=== PATIENT | female | born 1975 | race Caucasian/White ===

== ENCOUNTER 2022-05-05 15:54 | Outpatient (CLI) | payer OTHER, SELFPAY ==
--- NOTE | ~2022-05-05 | XR_ITS ---
XR knee RT min 4V DATE: 05/05/2022 16:20 INDICATION: Right knee pain TECHNIQUE: [place] and standing AP, PA and lateral views COMPARISON: None FINDINGS: No fracture or dislocation or joint effusion, periosteal reaction or bone destruction or si gnificant joint space narrowing. No radiopaque intra-articular loose body or chondrocalcinosis. IMPRESSION: No significant abnormality Reviewed, dictated and finalized at location B. IMPRESSION: No significant abnormality
== END 2022-05-05 15:55 ==
LOC: MICIMG 15:57
PROVIDERS: PCP Family Medicine; Visit Provider Family Medicine
DX: M25.861 Other specified joint disorders, right knee (principal)
CPT/HCPCS: 73564

== ENCOUNTER 2022-05-09 09:36 | Outpatient (CLI) | payer OTHER, SELFPAY ==
[2022-05-09 10:11] LABS: Basophils Percent Auto 0.5 % (0.2-1.2); Eosinophils Absolute Auto 0.1 K/mm3 (0-0.3); Eosinophils Percent Auto 2.6 % (0-4.4); Hematocrit 38.6 % (37.0-47.0); Hemoglobin 13.3 g/dL (12.0-15.0); Immature Granulocyte Absolute 0.01 K/mm3 (0.00-0.031); Immature Granulocyte Percent A 0.3 % (0-0.5); Lymphocytes Percent Auto 36.1 % (18.3-44.2); Mean Corpuscular HGB Conc 34.5 g/dl (32-36); Mean Corpuscular Hemoglobin 30.7 pg (26-34); Mean Corpuscular Volume 89.1 fl (80-100); Mean Platelet Volume 9.8 fl (7.4-10.4); Monocytes Absolute Auto 0.4 K/mm3 (0.1-0.6); Monocytes Percent Auto 9.5 % (2.6-8.5); Platelet Count Result 270 k/mm3 (150-375); Red Blood Count 4.33 M/mm3 (4.2-5.4); White Blood Count 3.9 K/mm3 (4.5-10.0)
[2022-05-09 10:24] LABS: Alanine Aminotransferase 14 U/L (6-35); Albumin Level 4.6 g/dL (3.5-5.1); Alkaline Phosphatase 36 U/L (38-126); Anion Gap 10 mmol/L (8-16); Aspartate Amino Transferase 18 U/L (14-36); Bilirubin,Total 0.6 mg/dL (0.2-1.3); Blood Urea Nitrogen 10 mg/dL (7-17); Calcium 9.1 mg/dL (8.4-10.2); Carbon Dioxide 26 mmol/L (22-30); Chloride 103 mmol/L (98-107); Cholesterol 280 mg/dL (0-200); Estimated Glomerular Filt Rate > 60; Glucose 93 mg/dL (65-110); HDL Direct 67 mg/dL; Potassium 4.2 mmol/L (3.4-5.0); Sodium 139 mmol/L (137-145); Triglycerides 83 mg/dL (<150)
[2022-05-09 10:34] LABS: LDL Cholesterol Direct 124 mg/dL
[2022-05-09 10:40] LABS: Free T4 Free Thyroxine 1.08 ng/mL (0.78-2.19); Vitamin D 25 Hydroxy 43.7 ng/mL
== END 2022-05-09 09:37 | disposition home or self-care (01) ==
LOC: ANHLAB 09:38
PROVIDERS: PCP Family Medicine; Visit Provider Family Medicine
DX: R53.83 Other fatigue (principal); R73.9 Hyperglycemia, unspecified; E55.9 Vitamin D deficiency, unspecified; Z13.220 Encounter for screening for lipoid disorders
CPT/HCPCS: 36415; 80053; 80061; 82306; 83036; 84439; 84443; 85025

== ENCOUNTER 2022-05-12 10:14 | Outpatient (CLI) | payer OTHER, SELFPAY ==
[2022-05-15 02:39] LABS: Thyroid Peroxidase Antibodies 124 IU/mL (<9)
== END 2022-05-12 10:15 | disposition home or self-care (01) ==
LOC: ANHGOSHLAB 10:16
PROVIDERS: PCP Family Medicine; Visit Provider Family Medicine
DX: R79.89 Other specified abnormal findings of blood chemistry (principal)
CPT/HCPCS: 36415; 86376

== ENCOUNTER 2022-05-23 13:41 | Outpatient (CLI) | payer OTHER, SELFPAY ==
--- NOTE | ~2022-05-23 | US_ITS ---
EXAMINATION: US soft tissue LE RT DATE: 05/23/2022 14:22 INDICATION: Mass medial to right knee. TECHNIQUE: Multiple grayscale and Doppler ultrasound images of the right lower limb were obtained. COMPARISON: Right knee radiographs 05/05/2022 FINDINGS: There is a 3.5 x 1.4 x 2.3 cm hypoechoic and anechoic mass medial to the right knee. IMPRESSION: 1. 3.5 x 1.4 x 2.3 cm mass medial to the right knee. The differential diagnosis includes neoplasm, ga nglion cyst, and hematoma. Knee MRI without and with contrast is recommended. Reviewed, dictated and finalized at location A. IMPRESSION: 1. 3.5 x 1.4 x 2.3 cm mass medial to the right knee. The differential diagnosis includes neoplasm, ganglion cyst, and hematoma. Knee MRI without and with cont rast is recommended.
== END 2022-05-23 13:42 | disposition home or self-care (01) ==
LOC: ANHIMG 13:43
PROVIDERS: PCP Family Medicine; Visit Provider Family Medicine
DX: M25.861 Other specified joint disorders, right knee (principal)
CPT/HCPCS: 76882

== ENCOUNTER 2022-06-27 14:18 | Outpatient (CLI) | payer OTHER, SELFPAY ==
--- NOTE | ~2022-06-27 | MR_ITS ---
EXAMINATION: MR knee RT wo/w con DATE: 06/27/2022 15:11 INDICATION: Painful lump at the medial right knee TECHNIQUE: Magnetic resonance imaging (MRI) of the without and with 13 mL Multihance knee was perform ed without intravenous contrast. Sequences included coronal PD-weighted FSE, coronal PD-weighted FS FSE, sagittal T2-weighted FSE, sagittal PD-weighted FS FSE, axial PD weighted fat saturated FSE, axia l T1-weighted FS FSE and postcontrast axial, sagittal and coronal T1-weighted FS FSE. COMPARISON: Right knee ultrasound dated 05/23/2022 FINDINGS: Medial compartment: Longitudinal horizontal tear at the posterior horn of the medial meniscus. There is associated large para labral cyst with thin peripheral enhancement arising at the medial side of the tear. The ganglio n cyst extends anteriorly along the medial side of the knee superficial to the medial collateral liga ment. The cyst measures 3.9 cm AP, 3.4 cm craniocaudally and 1.4 cm in maximal thickness. This appear s to correspond to the cystic lesion of concern on prior ultrasound. Articular cartilage is normal. Lateral compartment: Lateral meniscus is normal. Articular cartilage is normal. Patellofemoral compartment: Articular cartilage is normal. Ligaments and tendons: Anterior and posterior cruciate ligaments are normal. The medial collateral ligament and fibular yuki ateral ligament complex are normal. The extensor mechanism is normal. The visualized medial and later al hamstring tendons as well as the iliotibial band are normal. Fluid: Physiologic amount of fluid in the joint space. No loose osteochondral bodies identified. Osseous/other: Normal marrow signal. No fracture or pathologic marrow replacing process. No other masses, fluid yuki ections or abnormally enhancing lesions identified. IMPRESSION: 1. Longitudinal horizontal tear of the posterior horn of the medial meniscus with associated 3.9 x 3. 4 x 1.4 cm paravertebral cyst extending anteriorly along the medial side of the knee and accounting f or the cystic lesion of concern on prior ultrasound. Reviewed, dictated and finalized at location A. IMPRESSION: 1. Longitudinal horizontal tear of the posterior horn of the medial meniscus wi th associated 3.9 x 3.4 x 1.4 cm paravertebral cyst extending anteriorly along the medial side of the knee and accounting for the cystic lesion of concern on prior ultrasound.
== END 2022-06-27 14:19 ==
PROVIDERS: PCP Family Medicine; Visit Provider Family Medicine
DX: S83.241A Other tear of medial meniscus, current injury, right knee, initial encounter (principal); X58.XXXA Exposure to other specified factors, initial encounter
CPT/HCPCS: 73723; A9577

== ENCOUNTER 2022-07-21 01:02 | Day surgery (SDC) | payer OTHER, SELFPAY ==
[2022-07-14 08:28] VITALS: BMI 24.1
--- NOTE | 2022-07-14 08:41 | PC.NURSE ---
Report to the Outpatient Waiting Room, entrance under the green pavilion located off [facility], at time 0830 on date 07/21/22. OR Time: 1030. Time changes happen often and if your time is changed the preop area will call you the afternoon before. - You and your visitor will be asked to self-screen and do not enter if you have any COVID symptoms. - Only one visitor and NO children visitors are allowed at this time. - The patient visitor is requested to leave or wait in car when not with patient due to restrictions. - A mask is required within the hospital. Patients may have clear liquids (water, carbonated beverages, clear teas, apple juice) until 3 hours prior to surgery with a maximum of 20 ounces. - No food from midnight until time of surgery Take the following medications with a SIP of water the morning of surgery: LEVOTHYROXINE Medications to discontinue per physician: N/A Date to take last dose: N/A Please no make-up, nail romanian, hairspray, perfume, deodorant, or body powder the day of surgery. No jewelry (including any body piercings) or valuables the day of surgery, leave them at home. Please take a shower or bath the night before, or the morning of, surgery with an antibacterial soap. Wear comfortable, loose fitting clothing. - Jewelry must be removed prior to entering the operating room. Rings and piercings that are not removed may be cut off. - The hospital will not accept responsibility for valuables. - Please leave all valuables, including medications, at home the day of surgery. If you are going home after surgery, a licensed milk wagon driver must drive you home. - NO public transportation without another adult. - We recommend that an adult stay with you for 24 hours following discharge. - We also recommend that you do not drive, make important decision, drink alcoholic beverages, or take any drugs that were not prescribed by your health care provider for at least 24 hours after your discharge time. Follow any additional instructions given to you from your surgeon. If you or anyone in your household have experienced Covid symptoms in the past week, please notify your surgeon or the nurse liaison at the phone number below for possible testing. Telephone instructions given to PT - RAMAN SAHU and asked if any additional questions and then verbalized understanding. Patient advised to call surgeon office or pre surgery nurse liaison [phone] if any additional questions.
[2022-07-21] VITALS (9 sets, daily range): BP systolic 109–162; BP diastolic 52–90; PULSE 73–92; RESP 14–18; TEMP 37.1; O2SAT 98–100
--- NOTE | 2022-07-21 07:09 | WPDHPUPDATE1 ---
History and Physical Update Update Date/Time: 07/21/22 07:09 History and Physical has been reviewed, including an updated exam of the patient. There are NO changes in the patient's condition. Risks, benefits, and alternatives have been discussed and questions answered. Patient agrees to proceed with procedure.
[2022-07-21] MEDS: ACETAMINOPHEN 500 MG TABLET 1000 MG PO (08:41)
--- NOTE | 2022-07-21 09:20 | P.PNAN_ITS ---
Anes - Initial Pre Proc Eval Procedure: Operation Date: 07/21/22 10:30 Proposed Procedures p Right Knee Arthroscopy with Debridement Meniscus Synovectomy, Chrondroplasty, Proceed as Indicated - Kana Sue MD Date/Time: 07/21/22 09:20 Surgeon: Kana Sue MD Pre Op Diagnosis: Rt Knee Pain, Meniscis Tear, Chrondromalacia Patient Data Age: 47 Gender: F Height: 1.65 m Weight: 65.4 kg Last Vital Signs Temp 37.1 C 07/21/22 09:15 Pulse 87 07/21/22 09:15 Resp 16 07/21/22 09:15 BP 126/90 07/21/22 09:15 Pulse Ox 100 07/21/22 09:15 O2 Del Method Room Air 07/21/22 09:15 Allergies Allergy/AdvReac Type Severity Reaction Status Date / Time No Known Allergies Allergy Verified 07/21/22 08:36 Home Medications Medication Instructions Recorded Confirmed Type levothyroxine 25 mcg tablet 25 mcg PO DAILY #90 tabs 05/12/22 07/21/22 Rx hydrocodone 5 mg-acetaminophen 325 1 tablet PO Q6H PRN pain #30 tabs 07/21/22 Rx mg tablet ibuprofen 800 mg tablet 800 mg PO TID PRN pain #30 tabs 07/21/22 Rx ondansetron 8 mg disintegrating 8 mg PO Q8H PRN nausea and 07/21/22 Rx tablet vomiting #10 tabs sennosides 8.6 mg-docusate sodium 1 tab-cap PO BID PRN constipation 07/21/22 Rx 50 mg tablet (Senna with Docusate #20 tabs Sodium) Patient hx anesthesia problems: none Family hx anesthesia problems: none Results Review: All pre-operative results and documents have been reviewed as part of the pre- operative evaluation. [facility] Past Medical History Medical History Acute medial meniscus tear of right knee Anxiety Cyst of medial meniscus of right knee Hypothyroidism Family History Family History Father Diabetes mellitus Patient's father is in good health History of quadruple bypass Heart disease Mother Family history of malignant neoplasm of cervix, Onset Age: 61 Family history of malignant neoplasm of uterus, Onset Age: 61 Social History Social History Smoking status: Never smoker Second hand tobacco smoke exposure: No Alcohol intake: never Substance use: never Substance use type: does not use Living arrangements: with family Gender identity (if verbalized by the patient): Female Spiritual care concerns: No Anes - Eval Final PreProcedure Day of Procedure 07/21/22 09:20 Patient weight: normal Heart: regular rate and rhythm Lungs: clear to auscultation Airway: Mallampati scale class II Neurological: alert and oriented Last oral intake: >/= 8 hours ASA classification: II Emergent: no Anesthetic plan: proceed Anesthesia type and monitoring: general LMA and standard monitoring Results Review: All pre-operative results and documents have been reviewed as part of the pre- operative evaluation. Informed Consent: The patient's anesthetic plan and its attendant risks and benefits were discussed with the patient/family/POA. Questions were solicited and answers provided to the satisfaction of the patient/family/POA.
[2022-07-21] MEDS: KETOROLAC 15 MG/ML VIAL (*BKC) IV PUSH (09:24)
[2022-07-21] MEDS: LACTATED RINGERS 1,000 ML 30 ML IV CONT (09:24)
[2022-07-21] MEDS: MIDAZOLAM HCL (*CRX) 2 MG/2 ML VIAL IV PUSH (09:34)
[2022-07-21] MEDS: ceFAZolin 2 GM/D5W 50 ML 2 GM/50 ML BAG IVPB (10:12)
[2022-07-21] MEDS: BUPIVACAINE HCL 0.25% PF 30 ML VIAL INFILTRATE (10:44)
[2022-07-21] MEDS: BUPIVACAINE/EPINEPHRINE 0.25% 50 ML VIAL INFILTRATE (10:44)
[2022-07-21] MEDS: fentaNYL CITRATE INJ (*CRX) 100 MCG/2 ML VIAL 25 MCG IV PUSH ×4 (11:33→12:04)
--- NOTE | 2022-07-21 11:38 | P.OP_ITS ---
Procedure Note - Detailed Date of Procedure 07/21/22 Pre-op Diagnosis Rt Knee Pain, Meniscis Tear, Chrondromalacia Post-op Diagnosis Same Procedure Performed Right knee arthroscopy with partial medial meniscectomy Surgeon Kana Sue MD Anesthesia General Indications 47-year-old woman with right knee pain and a medial knee joint line cyst. MRI shows parameniscal cyst with medial meniscus tear. Patient presents for operative treatment. Findings Right knee with posterior horn radial tear of the medial meniscus extending to the synovium. Synovial cyst communicating from the medial aspect through the tear. Minimal chondromalacia medial and lateral condyles. Grade 1 chondromalacia patellofemoral joint. Lateral meniscus intact. ACL and PCL intact. Description of Procedure Informed consent given by patient. Operative extremity marked in preoperative holding area. Patient received intravenous antibiotics. Patient brought to operating room and underwent general anesthetic by anesthesia team. Positioned supine on operating room table. Right leg placed into a posterior thigh leg gayle. Foot of the table dropped to 90? and right leg padded out of the field. Time-out performed confirming patient, site of surgery and plan. Left knee prepped and draped in usual sterile surgical fashion using ChloraPrep skin solution. Standard arthroscopic portals made by using a 11 blade knife for the anterior lateral portal 1st. Capsule penetrated bluntly. Camera and inflow started. The above operative findings noted. Intra-articular visualization used to position the anterior medial portal using 22 gauge spinal needle. A 11 blade knife used for the skin and blunt penetration of the capsule. A large fragment of meniscus was adherent to the anterior synovium. This was removed with a grasper. Medial meniscus was then further inspected. Communication with the medial knee cyst was noted. The cyst was evacuated and suctioned out. The medial meniscus tear was then addressed. It was a complex tear not amenable to repair. 4.7 millimeter arthroscopic shaver introduced and partial medial meniscectomy of the loose and torn portion performed. Edge of meniscus completed with arthroscopic Wand. Arthroscopic Wand used to perform chondroplasty of the patellofemoral articulation and the medial femoral condyle. Shaver reintroduced and a synovectomy performed of the anterior fat pad and exte nsive synovium as well as medial and lateral plica. Bleeding points coagulated with Wand. Knee inspected, no loose pieces noted. 1 liter of irrigant infused and suction out. Arthroscopic cannulas removed. Skin closed with 4 nylon interrupted suture. Local anesthetic with 0.25% Marcaine. Sterile dressing applied. Patient awoken from anesthesia, extubated and taken to recovery room in stable condition. All sponge needle and instrument counts correct at the end of the case. Estimated Blood Loss -5.0 Tourniquet Time 0 Drains No Packing No Pathology None sent Complications None Condition Stable Disposition PACU
[2022-07-21] MEDS: oxyCODONE HCL (*CRX) 5 MG TAB IR PO (12:56)
--- NOTE | 2022-07-21 13:44 | SUR.PHASEII ---
CRUTCHES ORDERED FOR PATIENT.
== END 2022-07-21 13:31 | disposition home or self-care (01) ==
PROVIDERS: PCP Family Medicine; Visit Provider Orthopaedic Surgery
PROC: (CPT 29870; principal; 2022-07-21 10:30)
DX: S83.241A Other tear of medial meniscus, current injury, right knee, initial encounter (principal); M25.861 Other specified joint disorders, right knee; M67.40 Ganglion, unspecified site; T14.90XA Injury, unspecified, initial encounter
CPT/HCPCS: 29881; A9270; J0690; J1100; J1885; J2250; J2405; J2704; J3010; J7120

== ENCOUNTER 2022-11-10 12:39 | Outpatient (CLI) | payer OTHER, SELFPAY ==
[2022-11-10 21:14] LABS: Free T4 Free Thyroxine 1.16 ng/mL (0.78-2.19)
== END 2022-11-10 12:40 | disposition home or self-care (01) ==
LOC: ANHGOSHLAB 12:40
PROVIDERS: PCP Family Medicine; Visit Provider Family Medicine
DX: E06.3 Autoimmune thyroiditis (principal)
CPT/HCPCS: 36415; 84439; 84443

== ENCOUNTER 2023-02-07 11:04 | Outpatient (CLI) | payer OTHER, SELFPAY ==
[2023-02-07 20:43] LABS: Free T4 Free Thyroxine 1.16 ng/mL (0.78-2.19)
[2023-02-10 03:32] LABS: Thyroid Peroxidase Antibodies 188 IU/mL (<9)
== END 2023-02-07 11:05 | disposition home or self-care (01) ==
LOC: ANHGOSHLAB 11:07
PROVIDERS: PCP Family Medicine; Visit Provider Clinical Nurse Specialist
DX: E03.9 Hypothyroidism, unspecified (principal)
CPT/HCPCS: 36415; 84439; 84443; 86376

== ENCOUNTER 2023-04-17 10:43 | Outpatient (CLI) | payer OTHER, SELFPAY ==
[2023-04-17 19:56] LABS: Free T4 Free Thyroxine 1.44 ng/mL (0.78-2.19)
== END 2023-04-17 10:44 | disposition home or self-care (01) ==
LOC: ANHGOSHLAB 10:44
PROVIDERS: PCP Family Medicine; Visit Provider Family Medicine
DX: E06.3 Autoimmune thyroiditis (principal)
CPT/HCPCS: 36415; 84439; 84443

== ENCOUNTER 2024-07-22 09:40 | Outpatient (CLI) | payer OTHER, SELFPAY ==
[2024-07-22 13:00] LABS: Basophils Percent Auto 0.8 % (0.2-1.2); Eosinophils Absolute Auto 0.1 K/mm3 (0-0.3); Eosinophils Percent Auto 2.3 % (0-4.4); Hematocrit 42.2 % (37.0-47.0); Hemoglobin 13.8 g/dL (12.0-15.0); Immature Granulocyte Absolute 0.01 K/mm3 (0.00-0.031); Immature Granulocyte Percent A 0.2 % (0-0.5); Lymphocytes Absolute Auto 1.89 K/mm3 (0.9-3.2); Lymphocytes Percent Auto 35.7 % (18.3-44.2); Mean Corpuscular HGB Conc 32.7 g/dl (32-36); Mean Corpuscular Volume 94.8 fl (80-100); Mean Platelet Volume 11.2 fl (7.4-10.4); Monocytes Absolute Auto 0.6 K/mm3 (0.1-0.6); Monocytes Percent Auto 10.4 % (2.6-8.5); Neutrophils Absolute Auto 2.7 K/mm3 (1.3-6.7); Neutrophils Percent Auto 50.6 % (45.5-73.1); Platelet Count Result 280 k/mm3 (150-375); Red Blood Count 4.45 M/mm3 (4.2-5.4); Red Cell Distribution Width 12.8 % (11.5-14.5); White Blood Count 5.3 K/mm3 (4.5-10.0)
[2024-07-22 13:17] LABS: Alanine Aminotransferase 27 U/L (6-35); Albumin Level 4.6 g/dL (3.5-5.1); Alkaline Phosphatase 38 U/L (38-126); Anion Gap 8 mmol/L (4-12); Aspartate Amino Transferase 36 U/L (14-36); Bilirubin,Total 0.8 mg/dL (0.2-1.3); Blood Urea Nitrogen 15 mg/dL (7-17); Calcium 8.9 mg/dL (8.4-10.2); Carbon Dioxide 28 mmol/L (22-30); Chloride 102 mmol/L (98-107); Cholesterol 302 mg/dL (0-200); Estimated Glomerular Filt Rate > 60; Glucose 92 mg/dL (65-110); HDL Direct 73 mg/dL; Potassium 4.4 mmol/L (3.4-5.0); Sodium 138 mmol/L (137-145); Triglycerides 85 mg/dL (<150)
[2024-07-22 13:29] LABS: Free T4 Free Thyroxine 1.54 ng/mL (0.78-2.19); LDL Cholesterol Direct 150 mg/dL; Vitamin D 25 Hydroxy 35.2 ng/mL
[2024-07-22 14:54] LABS: Hemoglobin A1C 5.1 % (<5.7)
== END 2024-07-22 09:41 | disposition home or self-care (01) ==
LOC: ANHGOSHLAB 09:41
PROVIDERS: PCP Family Medicine; Visit Provider Family Medicine
DX: E06.3 Autoimmune thyroiditis (principal); E55.9 Vitamin D deficiency, unspecified; E78.5 Hyperlipidemia, unspecified; R53.83 Other fatigue; R73.9 Hyperglycemia, unspecified
CPT/HCPCS: 36415; 80053; 80061; 82306; 83036; 84439; 84443; 84480; 85025

== ENCOUNTER 2024-07-26 12:48 | Outpatient (CLI) | payer OTHER, SELFPAY ==
[2024-07-26 17:04] LABS: Alanine Aminotransferase 30 U/L (6-35); Albumin Level 4.6 g/dL (3.5-5.1); Alkaline Phosphatase 41 U/L (38-126); Anion Gap 8 mmol/L (4-12); Aspartate Amino Transferase 36 U/L (14-36); Bilirubin,Total 0.5 mg/dL (0.2-1.3); Blood Urea Nitrogen 14 mg/dL (7-17); Calcium 9.3 mg/dL (8.4-10.2); Carbon Dioxide 26 mmol/L (22-30); Chloride 104 mmol/L (98-107); Cholesterol 282 mg/dL (0-200); Estimated Glomerular Filt Rate > 60; Glucose 104 mg/dL (65-110); HDL Direct 81 mg/dL; Potassium 4.5 mmol/L (3.4-5.0); Sodium 138 mmol/L (137-145); Triglycerides 136 mg/dL (<150)
[2024-07-26 17:26] LABS: LDL Cholesterol Direct 137 mg/dL
[2024-08-04 22:33] LABS: Apolipoprotein B 123 mg/dL
== END 2024-07-26 12:49 | disposition home or self-care (01) ==
LOC: ANHGOSHLAB 12:49
PROVIDERS: PCP Family Medicine; Visit Provider Family Medicine
DX: E78.5 Hyperlipidemia, unspecified (principal); Z51.81 Encounter for therapeutic drug level monitoring
CPT/HCPCS: 36415; 80053; 80061; 82172